=== PATIENT | male | born 1950 | race Caucasian/White ===

== ENCOUNTER 2020-04-04 02:56 | Outpatient (CLI) | payer MEDICARE, OTHER, SELFPAY ==
[2020-04-04 18:17] LABS: SARS-CoV-2 RNA PCR Negative
== END 2020-04-04 02:57 | disposition home or self-care (01) ==
LOC: ANHCOVIDDT 02:57
PROVIDERS: PCP Internal Medicine; Visit Provider Internal Medicine Gastroenterology
DX: Z01.812 Encounter for preprocedural laboratory examination (principal); Z20.828 Contact with and (suspected) exposure to other viral communicable diseases
CPT/HCPCS: 87635; C9803; U0003

== ENCOUNTER 2020-04-06 03:52 | Day surgery (SDC) | payer MEDICARE, OTHER, SELFPAY ==
[2020-03-30 13:33] VITALS: BMI 40.4
[2020-04-06 06:47] VITALS: BP 166/62; PULSE 80; RESP 16; TEMP 36.2; O2SAT 98; BMI 44.6
--- NOTE | 2020-04-06 07:02 | PM.HPGS ---
History of Present Illness History of Present Illness Consent: Risks, benefits, and alternatives have been discussed and questions answered. Patient agrees to proceed with procedure. Chief complaint: Neoplasm Screening Narrative: Ryan Massey is a 69 year old W male referred for screening colonoscopy. Last colonoscopy was over 10 years ago. Patient is asymptomatic and has no family history of colon polyps or colon cancer. [facility] Past Medical History Medical History (Updated 04/06/20 @ 07:03 by Rene Del Toro MD) Dyslipidemia Hypertension Sleep apnea Surgical History Surgical History (Updated 04/06/20 @ 07:03 by Rene Del Toro MD) History of total right hip arthroplasty Social History Social History Smoking status: Never smoker Alcohol intake: never Substance use: never Substance use type: does not use Living arrangements: with family Spiritual care concerns: No Meds Home Medications and Allergies Home Medications Medication Instructions Recorded Confirmed Type amlodipine 10 mg PO DAILY 03/30/20 03/30/20 History atorvastatin 10 mg PO DAILY 03/30/20 03/30/20 History cyclosporine [Restasis MultiDose] 1 drp OPHTHALMIC (EYE) BID 03/30/20 03/30/20 History ibuprofen 600 mg PO HS PRN 03/30/20 03/30/20 History lisinopril-hydrochlorothiazide 1 tablet PO BID 03/30/20 03/30/20 History Allergies Allergy/AdvReac Type Severity Reaction Status Date / Time No Known Drug Allergies Allergy Unknown Other Verified 04/06/20 06:46 Vital Signs Vital Signs - 24 hr 04/06/20 06:47 Temperature 36.2 C L Pulse Rate 80 Respiratory Rate 16 Blood Pressure 166/62 H Pulse Oximetry 98 Exam Const: Orientation/consciousness: patient oriented x3 Resp: Auscultation: clear to auscultation bilaterally Cardio: Rate: regular rate Rhythm: regular rhythm Heart sounds: no murmurs GI: GI Palp: Yes Soft to palpation, No Tenderness to palpation present (GI), Yes No hepatosplenomegaly present and No Palpable mass present Auscultation: normal bowel sounds Neuro: General: patient oriented x3 and no focal motor deficits Extrem: General: no pedal edema Assessment and Plan Additional Plan screening colonoscopy in average risk patient
[2020-04-06] MEDS: LACTATED RINGERS 1,000 ML 150 ML IV CONT (07:05)
--- NOTE | 2020-04-06 07:19 | WPDANESEPPF ---
Anes - Initial Pre Proc Eval Procedure: Operation Date: 04/06/20 08:00 Proposed Procedures p Screening Colonoscopy - Rene Del Toro MD Date/Time: 04/06/20 07:19 Surgeon: Rene Del Toro MD Pre Op Diagnosis: Neoplasm Screening Patient Data Age: 69 Gender: M Height: 5 ft 6 in Weight: 125.6 kg Last Vital Signs Temp 97.2 F L 04/06/20 06:47 Pulse 80 04/06/20 06:47 Resp 16 04/06/20 06:47 BP 166/62 H 04/06/20 06:47 Pulse Ox 98 04/06/20 06:47 Allergies Allergy/AdvReac Type Severity Reaction Status Date / Time No Known Drug Allergies Allergy Unknown Other Verified 04/06/20 06:46 Home Medications Medication Instructions Recorded Confirmed Type amlodipine 10 mg PO DAILY 03/30/20 03/30/20 History atorvastatin 10 mg PO DAILY 03/30/20 03/30/20 History cyclosporine [Restasis MultiDose] 1 drp OPHTHALMIC (EYE) BID 03/30/20 03/30/20 History ibuprofen 600 mg PO HS PRN 03/30/20 03/30/20 History lisinopril-hydrochlorothiazide 1 tablet PO BID 03/30/20 03/30/20 History Patient hx anesthesia problems: none Family hx anesthesia problems: none PMFSH Past Medical History Medical History (Updated 04/06/20 @ 07:03 by Rene Del Toro MD) Dyslipidemia Hypertension Sleep apnea Surgical History Surgical History (Updated 04/06/20 @ 07:03 by Rene Del Toro MD) History of total right hip arthroplasty Social History Social History Smoking status: Never smoker Alcohol intake: never Substance use: never Substance use type: does not use Living arrangements: with family Spiritual care concerns: No Anes - Eval Final PreProcedure Day of Procedure 04/06/20 07:19 Patient weight: morbidly obese Heart: regular rate and rhythm Lungs: clear to auscultation Airway: Mallampati scale class II Neurological: alert and oriented Last oral intake: >/= 8 hours ASA classification: III Emergent: no Anesthetic plan: proceed Anesthesia type and monitoring: general GIVS and standard monitoring Informed Consent: The patient's anesthetic plan and its attendant risks and benefits were discussed with the patient/family/POA. Questions were solicited and answers provided to the satisfaction of the patient/family/POA.
[2020-04-06 08:55] VITALS: BP 145/62; PULSE 85; RESP 20; O2SAT 99
[2020-04-06 09:05] VITALS: BP 152/66; PULSE 79; RESP 18; O2SAT 98
[2020-04-06 09:15] VITALS: BP 153/73; PULSE 74; RESP 20; O2SAT 98
== END 2020-04-06 09:27 | disposition home or self-care (01) ==
PROVIDERS: PCP Internal Medicine; Visit Provider Internal Medicine Gastroenterology
PROC: 0DJD8ZZ Inspection of Lower Intestinal Tract, Via Natural or Artificial Opening Endoscopic (ICD-10-PCS; CPT 45378; principal; 2020-04-06 08:00)
DX: Z12.11 Encounter for screening for malignant neoplasm of colon (principal); K63.5 Polyp of colon; K57.30 Diverticulosis of large intestine without perforation or abscess without bleeding; K64.8 Other hemorrhoids; E78.5 Hyperlipidemia, unspecified; I10 Essential (primary) hypertension; G47.30 Sleep apnea, unspecified
CPT/HCPCS: 45385; 45381; 88305; J2704; J7120

== ENCOUNTER 2021-08-30 01:19 | Day surgery (SDC) | payer MEDICARE, OTHER, SELFPAY ==
[2021-07-19 14:17] VITALS: BMI 45.2
--- NOTE | 2021-08-15 13:57 | PC.NURSE ---
Spoke with pt regarding rescheduled colonoscopy. Pt updated with new date and arrival/procedure times. Pt verbalized understanding. Pt confirmed no changes to home medications or health history since previous PAT call completed.
--- NOTE | 2021-08-29 15:50 | PM.HPGS ---
History of Present Illness History of Present Illness Consent: Risks, benefits, and alternatives have been discussed and questions answered. Patient agrees to proceed with procedure. Chief complaint: hx of colon polyps Narrative: Ryan Massey is a 71 year old male who is here for colon cancer screening. He had a sessile serrated adenoma, broad-based, removed about 17 months ago Review of Systems Review of Systems: All systems reviewed & are unremarkable except as noted in HPI and below PMFSH Past Medical History Medical History Dyslipidemia Hypertension Sleep apnea Surgical History Surgical History History of total right hip arthroplasty Social History Social History Smoking status: Never smoker Alcohol intake: never Substance use: never Substance use type: does not use Living arrangements: with family Spiritual care concerns: No Meds Home Medications and Allergies Home Medications Medication Instructions Recorded Confirmed Type Restasis MultiDose 1 drp OPHTHALMIC (EYE) BID 03/30/20 08/30/21 History amlodipine 10 mg PO DAILY 03/30/20 08/30/21 History atorvastatin 10 mg PO DAILY 03/30/20 08/30/21 History ibuprofen 600 mg PO HS PRN 03/30/20 08/30/21 History lisinopril-hydrochlorothiazide 1 tablet PO BID 03/30/20 08/30/21 History Allergies Allergy/AdvReac Type Severity Reaction Status Date / Time No Known Drug Allergies Allergy Unknown Other Verified 08/30/21 07:52 Exam Resp: Auscultation: clear to auscultation bilaterally Cardio: Rate: regular rate Rhythm: regular rhythm GI: GI Palp: Yes Soft to palpation and No Tenderness to palpation present (GI) Assessment and Plan Assessment and plan (1) Colon cancer screening: Code(s): Z12.11 - Encounter for screening for malignant neoplasm of colon Status: Acute Assessment and Plan: Colonoscopy with possible biopsy or polypectomy or cautery or injection of substances.
[2021-08-30 07:53] VITALS: BP 180/64; PULSE 88; RESP 16; TEMP 36.6; O2SAT 96; BMI 46.7
[2021-08-30] MEDS: LACTATED RINGERS 1,000 ML 150 ML IV CONT (07:55)
--- NOTE | 2021-08-30 08:28 | P.PNAN_ITS ---
Anes - Initial Pre Proc Eval Procedure: Operation Date: 08/30/21 09:00 Proposed Procedures p Screening Colonoscopy - Shay Moctezuma MD Date/Time: 08/30/21 08:28 Surgeon: Shay Moctezuma MD Pre Op Diagnosis: hx of colon polyps Patient Data Age: 71 Gender: M Height: 1.68 m Weight: 131.3 kg Last Vital Signs Temp 36.6 C 08/30/21 07:53 Pulse 88 08/30/21 07:53 Resp 16 08/30/21 07:53 BP 180/64 H 08/30/21 07:53 Pulse Ox 96 08/30/21 07:53 Allergies Allergy/AdvReac Type Severity Reaction Status Date / Time No Known Drug Allergies Allergy Unknown Other Verified 08/30/21 07:52 Home Medications Medication Instructions Recorded Confirmed Type Restasis MultiDose 1 drp OPHTHALMIC (EYE) BID 03/30/20 08/30/21 History amlodipine 10 mg PO DAILY 03/30/20 08/30/21 History atorvastatin 10 mg PO DAILY 03/30/20 08/30/21 History ibuprofen 600 mg PO HS PRN 03/30/20 08/30/21 History lisinopril-hydrochlorothiazide 1 tablet PO BID 03/30/20 08/30/21 History Patient hx anesthesia problems: none Family hx anesthesia problems: none Results Review: All pre-operative results and documents have been reviewed as part of the pre-operative evaluation. [facility] Past Medical History Medical History (Updated 08/29/21 @ 15:51 by Shay Moctezuma MD) Dyslipidemia Hypertension Sleep apnea Surgical History Surgical History (Updated 04/06/20 @ 07:03 by Rene Del ToroMD) History of total right hip arthroplasty Social History Social History Smoking status: Never smoker Alcohol intake: never Substance use: never Substance use type: does not use Living arrangements: with family Spiritual care concerns: No Anes - Eval Final PreProcedure Day of Procedure 08/30/21 08:28 Patient weight: morbidly obese Heart: regular rate and rhythm Lungs: clear to auscultation and normal air movement Airway: Mallampati scale class II Neurological: alert and oriented Last oral intake: >/= 8 hours ASA classification: III Emergent: no Anesthetic plan: proceed Anesthesia type and monitoring: general GIVS and standard monitoring Results Review: All pre-operative results and documents have been reviewed as part of the pre-operative evaluation. Informed Consent: The patient's anesthetic plan and its attendant risks and benefits were discussed with the patient/family/POA. Questions were solicited and answers provided to the satisfaction of the patient/family/POA.
[2021-08-30 09:25] VITALS: BP 132/78; PULSE 84; RESP 18; O2SAT 93
[2021-08-30 09:35] VITALS: BP 151/79; PULSE 79; RESP 20; O2SAT 95
[2021-08-30 09:45] VITALS: BP 145/78; PULSE 76; RESP 20; O2SAT 95
== END 2021-08-30 09:50 | disposition home or self-care (01) ==
PROVIDERS: PCP Internal Medicine; Visit Provider Internal Medicine Gastroenterology
PROC: 0DJD8ZZ Inspection of Lower Intestinal Tract, Via Natural or Artificial Opening Endoscopic (ICD-10-PCS; CPT 45378; principal; 2021-08-30 09:00)
DX: Z12.11 Encounter for screening for malignant neoplasm of colon (principal); K63.5 Polyp of colon; K57.30 Diverticulosis of large intestine without perforation or abscess without bleeding; E78.5 Hyperlipidemia, unspecified; I10 Essential (primary) hypertension; G47.30 Sleep apnea, unspecified; E66.01 Morbid (severe) obesity due to excess calories; Z68.42 Body mass index [BMI] 45.0-49.9, adult
CPT/HCPCS: 45385; 88305; J2704; J7120

== ENCOUNTER 2025-04-17 19:08 | Emergency (ER) | payer MEDICARE, OTHER, SELFPAY ==
[2025-04-17] VITALS (25 sets, daily range): BP systolic 144–177; BP diastolic 64–95; PULSE 83–102; RESP 15–28; TEMP 36.8; O2SAT 94–98
--- NOTE | ~2025-04-17 | CT_ITS ---
CT HEAD NON-CONTRAST Clinical History: syncope Comparison: None Technique: Unenhanced axial images skull base to vertex Coronal, sagittal reformats CT images acquired with automatic exposure control for dose reduction DLP: 681 mGy-cm Findings: Large encephalomalacia right MCA distribution. White matter changes from chronic microvascular ischemic disease. Sulci, ventricles: Ex vacuo dilatation right lateral ventricle and third ventricle. No intracerebral hemorrhage. No evidence acute territorial infarct. No mass effect, midline shift. Bony calvarium intact. Visualized paranasal sinuses: Clear. Mastoid air cells: Clear. IMPRESSION: 1. No acute intracranial findings. Reviewed, dictated and finalized at location R.
--- NOTE | ~2025-04-17 | CT_ITS ---
EXAMINATION: CTA chest PE abdomen pel DATE: 04/17/2025 21:13 INDICATION: Syncope. Abdominal distention. Nausea and vomiting. TECHNIQUE: Computed tomography angiography (CTA) of the chest was performed with 100 mL Omnipaque-350 intravenous contrast timed to evaluate the pulmonary arteries. Coronal maximum intensity projection 3D-reconstructions were created by the technologist. Computed tomography (CT) of the abdomen and pelvis was performed with intravenous contrast. Automated exposure control and iterative reconstruction technique were employed. The dose-length product was 2377.96 mGy-cm. COMPARISON: None. FINDINGS: CTA chest: The lungs demonstrate mild atelectasis. No pleural effusion. The heart size is normal. There are coronary artery calcifications. No pericardial effusion. There is no pulmonary embolus. There are bridging endplate osteophytes at multiple levels in the spine, consistent with diffuse idiopathic skeletal hyperostosis (DISH). There is mild thoracic spondylosis. CT abdomen and pelvis: There is diffuse hepatic steatosis. The gallbladder, spleen, pancreas, and adrenal glands are normal. There are cysts in the kidneys measuring up to 12 mm on the left. There is a 2 mm stone in right kidney. There is prominent fat in the inguinal canals that may be hernias. There are no dilated loops of bowel. The appendix is normal. There are no pathologically enlarged lymph nodes. There is no free intraperitoneal fluid. There is a total right hip arthroplasty. There is severe lower lumbar spondylosis. IMPRESSION: 1. No pulmonary embolus. 2. Diffuse hepatic steatosis. Reviewed, dictated and finalized at location E.
--- NOTE | 2025-04-17 19:15 | ECG_ITS ---
Test Date: 2025-04-17 19:27:43 Measurements Intervals [place] Rate: 89 P: 46 TN: 177 QRS: 4 QRSD: 84 T: 35 QT: 365 QTc: 444 Interpretive Statements SINUS RHYTHM LOW QRS VOLTAGE IN PRECORDIAL LEADS INFERIOR INFARCT, AGE INDETERMINATE ANTEROSEPTAL INFARCT, AGE INDETERMINATE BASELINE ARTIFACT- II, AVF, V2-V6 ABNORMAL ECG No previous ECG available for comparison Electronically Signed On 04-17-2025 20:50:39 CDT by Jaylan Blair D.O.
[2025-04-17] MEDS: ONDANSETRON INJ 4 MG/2 ML VIAL (19:39)
[2025-04-17 19:45] LABS: Hematocrit 42.7 % (42.0-52.0); Hemoglobin 14.4 g/dL (14.0-18.0); Immature Granulocyte Percent A 0.3 % (0-0.5); Lymphocytes Absolute Auto 2.86 K/mm3 (0.9-3.2); Mean Corpuscular HGB Conc 33.7 g/dl (32-36); Mean Corpuscular Hemoglobin 31.9 pg (26-34); Mean Corpuscular Volume 94.5 fl (80-100); Nucleated Red Blood Cells Absolute Auto 0.000 K/mm3 (0.0-0.012); Nucleated Red Blood Cells Perc 0.0 % (0.0-0.2); Platelet Count Result 276 k/mm3 (150-375); Red Blood Count 4.52 M/mm3 (4.6-6.20); White Blood Count 11.0 K/mm3 (4.5-10.0)
[2025-04-17 19:59] LABS: Alanine Aminotransferase 72 U/L (6-50); Albumin Level 4.5 g/dL (3.5-5.1); Alkaline Phosphatase 80 U/L (38-126); Anion Gap 12 mmol/L (4-12); Aspartate Amino Transferase 54 U/L (17-59); Bilirubin,Total 0.4 mg/dL (0.2-1.3); Blood Urea Nitrogen 16 mg/dL (9-20); Calcium 9.4 mg/dL (8.4-10.2); Carbon Dioxide 21 mmol/L (22-30); Chloride 101 mmol/L (98-107); Estimated CRCL calculation 111 ml/min; Estimated Glomerular Filt Rate > 60; Glucose 171 mg/dL (65-110); INR 1.1; Partial Thromboplastin Time 24.9 Seconds (22.3-36.8); Potassium 4.5 mmol/L (3.4-5.0); Prothrombin Time 14.5 Seconds (11.1-14.7); Sodium 134 mmol/L (137-145); Total Protein 7.9 g/dL (6.3-8.2)
[2025-04-17 20:04] LABS: Add Urine Microscopic? YES; Appearance Urine Turbid (Clear); Glucose Urine UA Negative (Negative); Leukocyte Esterase Ur 3+ LEU/UL (Negative); Need Manual Microscopic Reviewed; Nitrate Urine Negative (Negative); Non Pathogenic Casts 0-2; Specific Grav Ur 1.015 (1.001-1.035)
--- NOTE | 2025-04-17 20:49 | ED.AMS ---
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 Patient has a history of hypertension. Presents to the emergency department after a suspected seizure. Patient was is normal state of health earlier today watching TV when his witnessed him having vomit tonic clonic shaking activity out of the blue. Patient has eyes open but not responsive to verbal or physical stimuli. Seizure lasted about 2 minutes prior to self a boarding. Patient was postictal upon arrival to the ER but started regaining consciousness and lost control of his bowel and bladder with diarrhea and nauseousness and vomiting with retching. Currently he is awake alert oriented as baseline no longer postictal. Not complaining of any headache, vision change, chest pain, shortness of breath. No history of seizure disorder. No changes to his medications recently. Did take his Eliquis this morning but not this evening. No traumatic injuries or falls recorded to the family or patient no recent fever, chills or illnesses. Related Data Home Medications ?Medication ?Instructions ?Recorded ?Confirmed ?Last Taken ?Type amlodipine 10 mg tablet 10 mg PO DAILY 03/30/20 04/16/22 04/05/20 History atorvastatin 10 mg tablet 10 mg PO DAILY 03/30/20 04/16/22 04/05/20 History cyclosporine 0.05 % eye drops 1 drp ophthalmic (eye) BID 03/30/20 04/16/22 04/05/20 History (Restasis MultiDose) ibuprofen 600 mg tablet 600 mg PO HS PRN Pain 03/30/20 04/16/22 04/05/20 History lisinopril 20 1 tablet PO BID 03/30/20 04/16/22 08/29/21 History mg-hydrochlorothiazide 12.5 mg tablet Allergies Allergy/AdvReac Type Severity Reaction Status Date / Time No Known Drug Allergies Allergy Unknown Other Verified 04/16/22 10:04 Review of Systems Review of Systems: As reviewed above in HPI [facility] Past Medical History Medical History Sleep apnea Dyslipidemia Hypertension Surgical History Surgical History History of total right hip arthroplasty Social History Social History Smoking status: Never smoker Alcohol intake: never Substance use: never Substance use type: does not use Living arrangements: with family Spiritual care concerns: No Exam Narrative: GENERAL: Protuberant, not ill-appearing. Awake and answering questions appropriately. HEAD: [Normocephalic, atraumatic.] EYES: [PERRLA and EOMI.] ENT: Nares clear, no rhinorrhea or epistaxis. Mucous membranes moist. NECK: Supple. CHEST: [Clear to auscultation. No respiratory distress.] HEART: [Regular rate and rhythm]. No murmur heard. [Normal peripheral pulses.] ABDOMEN: [Soft, nondistended], [nontender], [No rigidity or guarding] EXTREMITIES: Normal range of motion. [No edema.] SKIN: Warm, dry, no rash. NEURO: Left hemiparesis and maria del carmen-neglect. No visual changes from baseline. Right-sided full strength and sensation without changes. Awake alert oriented presently. 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 Patient has a history of hypertension. Presents to the emergency department after a suspected seizure. Patient was is normal state of health earlier today watching TV when his witnessed him having vomit tonic clonic shaking activity out of the blue. Patient has eyes open but not responsive to verbal or physical stimuli. Seizure lasted about 2 minutes prior to self a boarding. Patient was postictal upon arrival to the ER but started regaining consciousness and lost control of his bowel and bladder with diarrhea and nauseousness and vomiting with retching. Currently he is awake alert oriented as baseline no longer postictal. Not complaining of any headache, vision change, chest pain, shortness of breath. No history of seizure disorder. No changes to his medications recently. Did take his Eliquis this morning but not this evening. No traumatic injuries or falls recorded to the family or patient no recent fever, chills or illnesses. Patient is mildly tachycardic and hypertensive. No tachypnea, fever, hypoxia. Protuberant abdomen but nontender. Chronic left-sided hemiparesis and maria del carmen-neglect. No right-sided deficits. Awake alert oriented no longer postictal. Sounds like new onset seizure based on historical events and clinical encounter. Basic laboratory studies obtained as well as blood cultures, CT of the head, CTA of the chest abdomen pelvis, lactic acid and urinalysis. UTI found and he was given Rocephin. Fluids given. Zofran given for nausea. Placed on director of cardiac cath lab and re-evaluated. Patient remains hemodynamically stable after reassessments and has been at his neurological baseline for multiple hours. CTs of the head shows encephalomalacia from prior stroke but no new findings. CT of the chest abdomen pelvis and PE protocol shows no acute abnormalities. No PE. No dissection or aneurysm. No acute chest pathology. No acute abnormalities in the CT of the pelvis. No obstruction. Normal appendix. Patient given a dose of 1500 of Keppra. Workup shows a slight leukocytosis of 11 but normal hemoglobin and normal platelet count. Urinalysis shows urinary tract infection for which he was started on Rocephin while cultures sent. Point of care glucose is 171. Initial lactic acid 6 consistent with seizure activity. Will repeat after fluids and re-evaluation. LFTs unremarkable. Troponin negative. EKG shows no ectopy. Sinus rhythm. No ST segment changes. Given patient's new onset seizure we did speak to the Neurology team over at [facility] where patient's neurology team is located at. Spoke to Dr. Jim Decker who went over patient care with me together. He does not believe patient needs or is a candidate for transfer to their hospital for evaluation and recommended starting the patient on 750 mg of b.i.d. Keppra and treat the urinary tract infection as the likely inciting source with patient's history and will be able to follow up with his neurologist. I did ask about any potential observation for this patient given his 1st new seizure and I was informed that patient can be safely discharged upon returning to baseline mentation which he has already achieved. Physician also stated that if patient were to present to the emergency department over there he would have still discharged the patient home with same workup and plan. I relayed this discussion to the patient's family members and current plan will be for repeating lactic acid in observing him for several more hours to make sure that he can be safely discharged home with this plan in mind. Family members are able to follow-up with his neurologist on outpatient basis. Repeat lactic acid drawn and pending. Repeat lactic acid down trending. Patient observed for many hours here in the emergency depart without any recurrence of his symptoms. Safe for discharge home at this time. Will arrange ambulance services given patient's level of immobility at baseline. Family members updated on the plan of care and he will follow up with his regular neurologist female patient. Medical Records Attestation: I reviewed the patient's medical records. Lab Data Attestation: I reviewed the patient's lab results. 04/17/25 19:39 04/17/25 19:39 Labs: Lab Results 04/17/25 04/17/25 04/17/25 Range/Units 19:39 19:45 19:46 WBC 11.0 H (4.5-10.0) K/mm3 RBC 4.52 L (4.6-6.20) M/mm3 Hgb 14.4 (14.0-18.0) g/dL Hct 42.7 (42.0-52.0) % MCV 94.5 (80-100) fl MCH 31.9 (26-34) pg MCHC 33.7 (32-36) g/dl RDW 13.0 (11.5-14.5) % Plt Count 276 (150-375) k/mm3 MPV 8.9 (7.4-10.4) fl Immature Gran % (Auto) 0.3 (0-0.5) % Neut % (Auto) 61.2 (45.5-73.1) % Lymph % (Auto) 26.1 (18.3-44.2) % Riley % (Auto) 8.5 (2.6-8.5) % Eos % (Auto) 3.5 (0-4.4) % Baso % (Auto) 0.4 (0.2-1.2) % Lymph # (Auto) 2.86 (0.9-3.2) K/mm3 Riley # (Auto) 0.9 H (0.1-0.6) K/mm3 Eos # (Auto) 0.4 H (0-0.3) K/mm3 Baso # (Auto) 0.0 (0.0-0.1) K/mm3 Abs Immat Gran (auto) 0.03 (0.00-0.031) K/mm3 Absolute Neuts (auto) 6.7 (1.3-6.7) K/mm3 Absolute Nucleated RBC 0.000 (0.0-0.012) K/mm3 Nucleated RBC % 0.0 (0.0-0.2) % PT 14.5 (11.1-14.7) Seconds INR 1.1 APTT 24.9 (22.3-36.8) Seconds Sodium 134 L (137-145) mmol/L Potassium 4.5 (3.4-5.0) mmol/L Chloride 101 (98-107) mmol/L Carbon Dioxide 21 L (22-30) mmol/L Anion Gap 12 (4-12) mmol/L BUN 16 (9-20) mg/dL Creatinine 0.71 (0.7-1.3) mg/dL Estim Creat Clear Calc 111 ml/min Estimated GFR > 60 (59 - ) Glucose 171 H (65-110) mg/dL POC Capillary Glucose 176 H (65-105) mg/dl Lactic Acid 6.0 H* (0.7-2.0) mmol/L Calcium 9.4 (8.4-10.2) mg/dL Total Bilirubin 0.4 (0.2-1.3) mg/dL AST 54 (17-59) U/L ALT 72 H (6-50) U/L Alkaline Phosphatase 80 (38-126) U/L Troponin I < 0.012 (0.000-0.034) ng/mL Total Protein 7.9 (6.3-8.2) g/dL Albumin 4.5 (3.5-5.1) g/dL Urine Color Yellow (Yellow) Urine Appearance Turbid H (Clear) Urine pH 6.5 (5.0-9.0) Ur Specific Timpson 1.015 (1.001-1.035) Urine Protein 2+ H (Negative) mg/dL Urine Glucose (UA) Negative (Negative) mg/dL Urine Ketones Negative (Negative) mg/dL Ur Blood (Man) Trace (Negative) Urine Nitrate Negative (Negative) Urine Bilirubin Negative (Negative) Urine Urobilinogen 1.0 (<2.0) mg/dL Add Ur Microanalysis Reviewed Leukocyte Esterase Rfl 3+ H (Negative) SAÚL/UL Urine RBC 3-5 H (0-2) /hpf Urine WBC >100 H (0-3) /hpf Ur Squamous Epith Cells None seen (Few) /hpf Calcium Oxalate Crystal Present (None) /hpf Urine Bacteria 4+ /hpf Urine Casts 0-2 04/18/25 04/18/25 Range/Units 00:40 03:16 WBC (4.5-10.0) K/mm3 RBC (4.6-6.20) M/mm3 Hgb (14.0-18.0) g/dL Hct (42.0-52.0) % MCV (80-100) fl MCH (26-34) pg MCHC (32-36) g/dl RDW (11.5-14.5) % Plt Count (150-375) k/mm3 MPV (7.4-10.4) fl Immature Gran % (Auto) (0-0.5) % Neut % (Auto) (45.5-73.1) % Lymph % (Auto) (18.3-44.2) % Riley % (Auto) (2.6-8.5) % Eos % (Auto) (0-4.4) % Baso % (Auto) (0.2-1.2) % Lymph # (Auto) (0.9-3.2) K/mm3 Riley # (Auto) (0.1-0.6) K/mm3 Eos # (Auto) (0-0.3) K/mm3 Baso # (Auto) (0.0-0.1) K/mm3 Abs Immat Gran (auto) (0.00-0.031) K/mm3 Absolute Neuts (auto) (1.3-6.7) K/mm3 Absolute Nucleated RBC (0.0-0.012) K/mm3 Nucleated RBC % (0.0-0.2) % PT (11.1-14.7) Seconds INR APTT (22.3-36.8) Seconds Sodium (137-145) mmol/L Potassium (3.4-5.0) mmol/L Chloride (98-107) mmol/L Carbon Dioxide (22-30) mmol/L Anion Gap (4-12) mmol/L BUN (9-20) mg/dL Creatinine (0.7-1.3) mg/dL Estim Creat Clear Calc ml/min Estimated GFR (59 - ) Glucose (65-110) mg/dL POC Capillary Glucose (65-105) mg/dl Lactic Acid 3.0 H 2.4 H (0.7-2.0) mmol/L Calcium (8.4-10.2) mg/dL Total Bilirubin (0.2-1.3) mg/dL AST (17-59) U/L ALT (6-50) U/L Alkaline Phosphatase (38-126) U/L Troponin I (0.000-0.034) ng/mL Total Protein (6.3-8.2) g/dL Albumin (3.5-5.1) g/dL Urine Color (Yellow) Urine Appearance (Clear) Urine pH (5.0-9.0) Ur Specific Timpson (1.001-1.035) Urine Protein (Negative) mg/dL Urine Glucose (UA) (Negative) mg/dL Urine Ketones (Negative) mg/dL Ur Blood (Man) (Negative) Urine Nitrate (Negative) Urine Bilirubin (Negative) Urine Urobilinogen (<2.0) mg/dL Add Ur Microanalysis Leukocyte Esterase Rfl (Negative) SAÚL/UL Urine RBC (0-2) /hpf Urine WBC (0-3) /hpf Ur Squamous Epith Cells (Few) /hpf Calcium Oxalate Crystal (None) /hpf Urine Bacteria /hpf Urine Casts Discharge Plan Discharge Clinical Impression: First time seizure, History of stroke, Acute UTI Patient Disposition: Home Condition: Stable Instructions: Antibiotic Form, Urinary Tract Infection in Men (ED), New-Onset Seizure in Adults (ED) Additional Instructions: Your workup today revealed a urinary tract infection and combined with your history of stroke likely precipitated a new onset first-time seizure. You were observed in the emergency department for numerous hours with any recurrence of symptoms. We spoke to the Neurology team at your preferred hospital [facility] who recommended starting a medication for seizure prophylaxis as well as treating the urinary tract infection and then you can go home with regular neurology follow-up on outpatient basis. They recommended we start you on Keppra 750 mg b.i.d. as well as and antibiotic for UTI which we have sent to your pharmacy. You received a dose here in the emergency department and can safely go home and take the rest of the prescription starting tomorrow morning. Follow-up with your regular neurologist and return if you have any recurrent seizure, new symptoms, urgent or emergent concerns. Urine culture was sent and you will receive a phone call if any resistant bacteria grow out to change the antibiotic to something more appropriate. Patient Language: Indonesian Prescriptions: New levetiracetam [Keppra] 750 mg tablet 750 mg PO BID 30 Days Qty: 60 0RF sulfamethoxazole-trimethoprim [Bactrim DS] 800-160 mg tablet 1 tablet PO Q12H Qty: 14 0RF No Action atorvastatin 10 mg tablet 10 mg PO DAILY lisinopril-hydrochlorothiazide 20-12.5 mg tablet 1 tablet PO BID amlodipine 10 mg tablet 10 mg PO DAILY ibuprofen 600 mg Tablet 600 mg PO HS PRN (Reason: Pain) Restasis MultiDose 0.05 % drops 1 drp ophthalmic (eye) BID Follow-up/Referrals: Nahid,Thierno Hampton MD [Primary Care Provider] Time of Disposition: 04:24
--- OUTSIDE RECORDS SUMMARY | 2025-04-17 21:02 | XMS_ITS | Encounter Summary ---
Author Organization [facility] Address [address] [place] [address] Care Team Providers Care Manager Bar Name Role Phone Thierno Whitfield MD Primary Care Provider [phone] Encounter Details Date Type Department Care Team (Latest Contact Info) Description 03/23/2025 Results Follow-Up [facility] [address] [place] [id number] Thierno Whitfield MD [address] [place] [id number] Comprehensive metabolic panel, CBC with auto differential, PSA screen, Hepatitis C antibody Blood Social History Tobacco Use Types Packs/Day Years Used Date Smoking Tobacco: Never Smokeless Tobacco: Never Alcohol Use Standard Drinks/Week Comments No 0 (1 standard drink = 0.6 oz pur e alcohol) [facility] Utilities Answer Date Recorded In the past 12 months has [employer], gas, oil, or water [employer] threatened to shut off services in your home? No 11/23/2024 Social Connection and Isolation Panel Answer Date Recorded In a typical week, how many times do you talk on the phone with family, friends, or neighbors? More than three times a week 11/23/2024 How often do you get togethe r with friends or relatives? Three times a week 11/23/2024 How often do you attend chur or jain services? Never 11/23/2024 Do you belong to any clubs o r organizations such as methodist groups, unions, fraternal or athletic groups, or school groups? No 11/23/2024 How often do you attend meet ings of the clubs or organizations you belong to? Never 11/23/2024 Are you , , di vorced, , never , or living with a partner? 11/23/2024 AUDIT-C Answer Date Recorded Q1: How often do you have a drink containing alcohol? Never 11/21/2024 Q2: How many drinks containi ng alcohol do you have on a typical day when you are drinking? Patient does not drink Q3: How often do you have si x or more drinks on one occasion? Never 11/21/2024 Overall Financial Resource Strain (CARDIA) Answe r Date Recorded How hard is it for you to pa y for the very basics like food, housing, medical care, and heating? Not hard at all 11/23/2024 PHQ-2 Answer Date Recorded PHQ-2 Total Score (If total score is 3 or more points, staff should administer the PHQ-9) 0 11/07/2023 Hunger Vital Sign Answer Date Recorded Within the past 12 months, y ou worried that your food would run out before you got the money to buy more. Never true 11/24/19 Within the past 12 months, t he food you bought just didn't last and you didn't have money to get more. Never true 11/23/2024 PRAPARE - Transportation Answer Date Re corded In the past 12 months, has l ack of transportation kept you from medical appointments or from getting medications? No 10/29 In the past 12 months, has l ack of transportation kept you from meetings, work, or from getting things needed for daily living? No 11/23/2024 Housing Stability Vital Sign Answer David e Recorded In the last 12 months, was t here a time when you were not able to pay the mortgage or rent on time? No 11/23/2024 In the past 12 months, how m any times have you moved where you were living? 0 11/23/2024 At any time in the past 12 m [facility], were you homeless or living in a senior living (including now)? No 11/23/2024 Personal Safety Answer Date Recorded Have you ever been in or are you currently in a harmful physical or emotional relationship or is someone making you feel afraid or unsafe? 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
--- OUTSIDE RECORDS SUMMARY | 2025-04-17 21:02 | XMS_ITS | Encounter Summary ---
Author Organization [facility] Address [address] [place] [address] Care Team Providers Care Private Wealth Advisor Name Role Phone Thierno Whitfield MD Primary Care Provider [phone] Reason for Visit * Reason Onset Date Comments Hypertension 04/15/2025 Encounter Details Date Type Department Care Team (Late st Contact Info) Description 04/15/2025 Telephone [facility] [address] [id number] Thierno Whitfield MD [address] [phone] Hypertension Social History Tobacco Use Types Packs/Day Years Used Date Smoking Tobacco: Never Smokeless Tobacco: Never Alcohol Use Standard Drinks/Week Comments No 0 (1 standard drink = 0.6 oz pur e alcohol) [facility] Utilities Answer Date Recorded In the past 12 months has [employer], oil, or water [employer] threatened to shut off services in your [...] 11/23/2024 How often do you attend chur ch or druze services? Never 11/23/2024 Do you belong to any clubs o r organizations such as worship groups, unions, fraternal or athletic groups, or [...] any time in the past 12 m [facility], were you homeless or living in a fci (including now)? No 11/23/2024 Personal Safety Answer Date Recorded Have you ever been in or are you currently in a harmful physical or emotional relationship or is someone making you feel afraid or unsafe? 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 He is taking all his medication is prescribed. Today patient feels fine, uses 2 different cuffs as well. BP READINGS ARE FOLLOW: 04/15 175/88 @1PM 04/14 180/89 @ 1PM 04/13 167/78 @ 1PM 04/12 167/78 @ 2PM documented in this encounter Plan of Treatment Not on file documented as of this encounter Visit Diagnoses Not on filedocumented in this encounter Care Teams Private Wealth Advisor Relationship Specialty Start Date End Date Thierno Whitfield MD PCP - General 10/18/16 documented as of this encounter
--- OUTSIDE RECORDS SUMMARY | 2025-04-17 21:02 | XMS_ITS | Encounter Summary ---
Author Organization [facility] Address [address] [place] [address] Care Team Providers Care Poolroom/Poolhall Manager Name Role Phone Thierno Whitfield MD Primary Care Provider [phone] Lucille Zarate RN Unavailable [facility] Encounter Details Date Type Department Care Team (Late st Contact Info) Description 10/22/2018 Documentation [facility] Case Management [address] [place] [address] Lucille Zarate RN Social History Tobacco Use Types Packs/Day Years Used Date Smoking Tobacco: Never Smokeless Tobacco: Never Alcohol Use Standard Drinks/Week Comments No 0 (1 standard drink = 0.6 oz pur e alcohol) Sex and Gender Information Value Date Recorded Sex Assigned at Not on file 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
[2025-04-17 21:06] LABS: Troponin I < 0.012 ng/mL (0.000-0.034)
[2025-04-17] MEDS: LACTATED RINGERS 1,000 ML 999 ML IV CONT (21:33)
[2025-04-17] MEDS: cefTRIAXone 2 GM in SODIUM CHLORIDE 0.9% IV 100 ML 200 ML IVPB (21:34)
[2025-04-17] MEDS: levETIRAcetam 1500MG/NACL100ML 1,500 MG/100 ML BAG 400 MG IVPB (21:34)
[2025-04-18] VITALS (37 sets, daily range): BP systolic 142–190; BP diastolic 65–103; PULSE 68–89; RESP 14–23; O2SAT 93–100
[2025-04-18] MEDS: GABAPENTIN 300 MG CAPSULE PO (01:48)
[2025-04-18] MEDS: LACTATED RINGERS 1,000 ML 999 ML IV CONT (01:49)
[2025-04-18] MEDS: ACETAMINOPHEN 500 MG TABLET 1000 MG PO (03:19)
--- NOTE | 2025-04-18 08:56 | ECG_ITS ---
Test Date: 2025-04-17 19:34:51 Measurements Intervals [place] Rate: 95 P: 34 ID: [id number] QRS: -3 QRSD: 99 T: 29 QT: 355 QTc: 447 Interpretive Statements SINUS RHYTHM LOW QRS VOLTAGE IN PRECORDIAL LEADS CONSIDER INFERIOR INFARCT, AGE INDETERMINATE ANTEROSEPTAL INFARCT, AGE INDETERMINATE BASELINE ARTIFACT- V6 ABNORMAL ECG Compared to ECG 04/17/2025 19:27:43 No significant changes Electronically Signed On 04-18-2025 10:39:38 CDT by Jaylan Blair D.O.
== END 2025-04-18 09:30 | disposition home or self-care (01) ==
PROVIDERS: Emergency Medicine; Student in an Organized Health Care Education/Training Program; Emergency Provider Student in an Organized Health Care Education/Training Program; PCP Internal Medicine
DX: R56.9 Unspecified convulsions (principal); N39.0 Urinary tract infection, site not specified; I69.354 Hemiplegia and hemiparesis following cerebral infarction affecting left non-dominant side; I69.312 Visuospatial deficit and spatial neglect following cerebral infarction; I10 Essential (primary) hypertension; E78.5 Hyperlipidemia, unspecified; G47.30 Sleep apnea, unspecified; Z96.641 Presence of right artificial hip joint; Z79.01 Long term (current) use of anticoagulants; Z79.899 Other long term (current) drug therapy
CPT/HCPCS: 36415; 70450; 71275; 74160; 74177; 80053; 81001; 82948; 83605; 84484; 85025; 85610; 85730; 87040; 87086; 87186; 93005; 96361; 96365; 96375; 99284; A9270; J0696; J1953; J2405; J7120; Q9967